=== PATIENT | male | born 1990 | race Caucasian/White ===

== ENCOUNTER 2019-09-30 11:49 | Emergency (ER) | payer OTHER, SELFPAY ==
[2019-09-30 12:07] VITALS: BP 146/103; PULSE 102; RESP 20; TEMP 37.4; O2SAT 98
--- NOTE | 2019-09-30 12:16 | ED.URI ---
HPI - URI/Sore Throat General Chief Complaint: Upper Respiratory Infection Stated Complaint: cough/body aches/vomiting Time Seen by Provider: 09/30/19 12:10 Source: patient Mode of arrival: ambulatory Limitations: physical limitation History of Present Illness HPI Narrative: Donn Nunez is a 29 yo with PMH of anxiety, depression, ADD, who comes to the [facility] care with flu symptoms including coughing vomiting body aches neck pain that started last night. Girlfriend was diagnosed with the flu 2 days ago Related Data Home Medications Medication Instructions Recorded Confirmed alprazolam [Xanax] 0.25 mg PO BID 09/30/19 09/30/19 dextroamphetamine-amphetamine 30 mg PO BID 09/30/19 09/30/19 [Adderall] eszopiclone [Lunesta] 2 mg PO HS 09/30/19 09/30/19 Allergies Allergy/AdvReac Type Severity Reaction Status Date / Time No Known Allergies Allergy Verified 09/30/19 12:09 Review of Systems Review of Systems: Narrative: CONSTITUTIONAL: Denies fever, has chills, sweats. EYES: Denies visual changes, redness, discharge. ENT: Has rhinorrhea, congestion, sore throat, no otalgia. CARDIOVASCULAR: Denies chest pain, palpitations, edema. RESPIRATORY: Denies dyspnea, wheezing, has dry cough GASTROINTESTINAL: Denies abdominal pain, has nausea, vomiting, no diarrhea. GENITOURINARY: Denies dysuria, hematuria, abnormal discharge SKIN: Denies rash or itching. MUSCULOSKELETAL:has acute back pain, no joint pain, or myalgia. NEUROLOGIC: Denies numbness, or focal weakness. PSYCHIATRIC: Denies anxiety or depression. PMFSH Social History Social History Smoking status: Former smoker Comments At time of signature, I agree with nursing past medical, surgical, social and family history. There is no relevant family history pertinent to the presenting complaint. No family history noted Elevated BP - due to illness and recent vomiting - recommended follow up with pcp Exam Narrative: Exam Narrative: GENERAL: This is a well-nourished, well-developed patient, in mild apparent distress. HEAD: normocephalic, atraumatic. EYES: PERRL. Sclera clear/white. Vision is grossly intact. EARS: External ears normal, auditory canals clear and without drainage, TMs normal without perforation. Hearing grossly intact. NOSE: External nose normal with obvious nasal discharge, nares with redness, has rhinorrhea. THROAT: Mucous membranes moist, posterior pharynx erythema NECK: Neck supple, non-tender without lymphadenopathy, CARDIOVASCULAR: Regular rate and rhythm without murmurs, gallops, or rubs. RESPIRATORY: Clear to auscultation. Breath sounds equal bilaterally. No wheezes, rales, or rhonchi. GASTROINTESTINAL: Abdomen soft, non-tender, SKIN: warm, intact with no suspicious lesions or rash, NEURO: awake, alert, and oriented to person, place and time. There were no obvious focal neurologic abnormalities. Steady gait EXTREMITIES: Normal range of motion. No edema. BACK: Nontender without deformity or crepitance. . Course Course Emergency Course: flu swab neg but SO is positive and given symptoms, treated cough - started on codeine cough syrup Ibuprofen, flonase Vital Signs Vital signs: Vital Signs Temperature 99.4 F 09/30/19 12:07 Pulse Rate 102 H 09/30/19 12:07 Respiratory Rate 09/30/19 12:07 Blood Pressure 146/103 H 09/30/19 12:07 Pulse Oximetry 98 09/30/19 12:07 Temperature 99.4 F 09/30/19 12:07 Pulse Rate 104 H 09/30/19 12:52 Respiratory Rate 09/30/19 12:07 Blood Pressure 157/89 H 09/30/19 12:52 Pulse Oximetry 98 09/30/19 12:07 MDM - URI/Sore Throat Differential Diagnosis Differential diagnosis: Likely upper respiratory infection, viral infection and other Lab Data Labs: Influenza A Screen Negative Reference Range: Negative Influenza B Screen Negative Reference Range: Negative Discharge Plan
[2019-09-30] MEDS: KETOROLAC (*BKC) 60 MG/2 ML VIAL IM (12:34)
[2019-09-30 12:52] VITALS: BP 157/89; PULSE 104
== END 2019-09-30 12:58 | disposition home or self-care (01) ==
PROVIDERS: Emergency Provider Nurse Practitioner
DX: J11.1 Influenza due to unidentified influenza virus with other respiratory manifestations (principal); Z87.891 Personal history of nicotine dependence; Z23 Encounter for immunization
CPT/HCPCS: 87804; 96372; 99203; G0463; J1885